=== PATIENT | female | born 1970 | race Two or more races ===

== ENCOUNTER 2020-03-09 12:12 | Emergency (ER) | payer OTHER ==
--- NOTE | 2020-03-09 13:13 | EDM.PDOC ---
<Adrienne Fuller M - Last Filed: 03/09/20 16:11> ED HPI GENERAL MEDICAL PROBLEM - General Chief Complaint: Respiratory Problem Stated Complaint: COVID + FEELING WEAK AND SOB Time Seen by Provider: 03/09/20 13:00 Source of Information: Reports: Patient History Limitations: Reports: No Limitations - History of Present Illness INITIAL COMMENTS - FREE TEXT/NARRATIVE: 49-year-old female presents to the emergency department with complaints of shortness of breath, cough, nausea, diarrhea and general malaise. She tested positive for Covid on 02 March. States she is just feeling increased shortness of breath and generally unwell. States she has a persistent cough which became more productive of sputum this morning. Also complains of pain in the middle of her back when laying flat in bed and coughing. Appetite has also been poor. Denies significant medical history other than hypertension for which she takes medications. Primary care physician is Dr. Boggs. On presentation to the ER the patient's O2 saturations are 96% on room air, however she is tachypneic. Onset: Gradual Chest Pain Score (Numeric/FACES): 6 - Related Data Allergies Allergy/AdvReac Type Severity Reaction Status Date / Time No Known Allergies Allergy Verified 03/09/20 12:47 Home Meds: Home Meds Control 1 tab PO DAILY 03/09/20 [History] Omeprazole Magnesium [Prilosec] 20 mg PO DAILY 03/09/20 [History] dexAMETHasone [Decadron] 6 mg PO ASDIRECTED #15 tablet 03/09/20 [Rx] Past Medical History Cardiovascular History: Reports: Hypertension Gastrointestinal History: Reports: GERD - Past Surgical History HEENT Surgical History: Reports: Adenoidectomy, Tonsillectomy GI Surgical History: Reports: Hernia, Inguinal Female Surgical History: Reports: D&C, Tubal Ligation Social & Family History - Tobacco Use Tobacco Use Status *Q: Never Tobacco User - Caffeine Use Caffeine Use: Reports: Coffee, Soda - Recreational Drug Use Recreational Drug Use: No ED EXAM, GENERAL - Physical Exam Exam: See Below Exam Limited By: No Limitations General Appearance: Alert, WD/WN, Mild Distress Eye Exam: Bilateral Eye: PERRL Ears: Normal External Exam, Hearing Grossly Normal Nose: Normal Inspection Throat/Mouth: Normal Lips, Normal Voice, No Airway Compromise Head: Atraumatic, Normocephalic Neck: Normal Inspection, Supple, Non-Tender, Full Range of Motion Respiratory/Chest: Decreased Breath Sounds Cardiovascular: Normal Peripheral Pulses, Regular Rate, Rhythm, No Edema, No Murmur Peripheral Pulses: 2+: Radial (L), Radial (R), Dorsalis Pedis (L), Dorsalis Pedis (R) GI/Abdominal: Normal Bowel Sounds, Soft, Non-Tender (Female) Exam: Deferred Rectal (Female) Exam: Deferred Back Exam: Normal Inspection, Full Range of Motion Extremities: Normal Inspection, Normal Range of Motion, Non-Tender, No Pedal Edema, Normal Capillary Refill Neurological: Alert, Oriented, Normal Cognition Psychiatric: Normal Affect, Normal Mood Skin Exam: Warm, Dry, Intact, Normal Color, No Rash Lymphatic: No Adenopathy #1 Interpretation EKG Date: 03/09/20 Time: 13:08 Rhythm: NSR Rate (Beats/Min): 86 [place]: Normal P-Wave: Present Comparison: NA - No Prior EKG EKG Interpretation Comments: As per Dr. Barboza interpretation: Sinus rhythm at 86, T wave flattening V1 through V6, 3 and aVF: Metabolic abnormality, QTC moderately prolonged Course - Re-Assessments/Exams Free Text/Narrative Re-Assessment/Exam: 03/09/20 14:10 Labs reveal WBC 5.07, platelet count 161, D-dimer 0.38, potassium 4.9, troponin less than 0.017, C-reactive protein 2.4, potassium 3.9, magnesium 1.8 I spoke with the patient to provide information about family and bamlanivimab treatment for her. I offered her the patient and caregiver MELISSA Bamlanivimad fax sheet to read and review. I stated the drug has been approved by an emergency use authorization process and has not been fully FDA reviewed or approved. The patient meets the EUA requirements having a history of hypertension treated with losartan, and a BMI of 44.9. I discussed there are other potential treatment options that are currently not FDA approved to treat COVID-19. Offered the opportunity to ask questions and all questions were answered. The patient voiced understanding and agreed to proceed with the treatment for herself 03/09/20 14:14 Nothing acute seen on portable chest x-ray 03/09/20 16:11 I have turned over care to WINTER Archibald. Departure - Departure Disposition: Home, Self-Care 01 Clinical Impression: COVID-19 - Discharge Information Prescriptions: dexAMETHasone [Decadron] 6 mg PO ASDIRECTED #15 tablet Instructions: COVID-19 Frequently Asked Questions, Prevent the Spread of COVID- 19 if You Are Sick - [facility] Referrals: Kavin Boggs MD [Primary Care Provider] - Forms: ED Department Discharge Additional Instructions: You were seen in the ER today for ongoing and/or worsening respiratory symptoms. Your chest x-ray showed no signs of pneumonia at this time. Your oxygen levels were okay at 94-95% on room air. You were given a monoclonal antibody for your COVID-19 disease. This is to help reduce some of the severity of your symptoms, and hopefully give you a shorter disease course. Please try to increase your oral fluid intake, and eat multiple small meals throughout the day, to keep yourself healthy. You need to keep yourself nourished in order to fight off this disease. You can try a liquid diet like gatorade/powerade as well to get your electrolytes. You may take 500 mg Tylenol every hours 6 hours for pain/fever relief. Do not exceed 4000 mg Tylenol in a 24-hour time span. However, running a fever is your body's natural response to illness, and it allows the body to develop antibodies to disease, we are recommending trying to limit the use of Tylenol as much as possible to allow your body's natural immune response. You were given a prescription for dexamethasone, dosing will be 1 tablet 2 times a day for the next 5 days, then 1 tablet once a day x5 days. Recommend you obtain a pulse oximeter and monitor your oxygen levels at home, you should place the monitor on your finger, and sit in a calm, quiet position for a few minutes and then record the number that is on the screen. If this consistently below 90% on room air without movement, this would be cause for concern to come back to the hospital for further management of your COVID-19 disease. Sepsis Event Note (ED) - Evaluation Sepsis Screening Result: No Definite Risk <Magalie Barker V - Last Filed: 03/09/20 19:33> ED ROS GENERAL - Review of Systems Review Of Systems: Comprehensive ROS is negative, except as noted in HPI. Course - Vital Signs Last Recorded V/S: Last Vital Signs Temp 97.4 F 03/09/20 17:30 Pulse 92 03/09/20 17:30 Resp 22 H 03/09/20 17:30 BP 134/106 H 03/09/20 17:30 Pulse Ox 97 03/09/20 17:30 - Orders/Labs/Meds Orders: Active Orders 24 hr Category Date Time Status Isolation [COMM] Routine Oth 03/09/20 13:05 Ordered Labs: Laboratory Tests 03/09/20 03/09/20 03/09/20 Range/Units 13:20 13: 13:20 WBC 5.07 (3.98-10.04) K/mm3 RBC 4.94 (3.98-5.22) M/mm3 Hgb 14.4 (11.2-15.7) gm/dl Hct 43.4 (34.1-44.9) % MCV 87.9 (79.4-94.8) fl MCH 29.1 (25.6-32.2) pg MCHC 33.2 (32.2-35.5) g/dl RDW Std Deviation 41.5 (36.4-46.3) fL Plt Count 161 L (182-369) K/mm3 MPV 9.2 L (9.4-12.3) fl Neutrophils % (Manual) 70 H (40-60) % Band Neutrophils % 0 (0-10) % Lymphocytes % (Manual) 27 (20-40) % Atypical Lymphs % 0 % Monocytes % (Manual) 3 (2-10) % Eosinophils % (Manual) 0 L (0.7-5.8) % Basophils % (Manual) 0 L (0.1-1.2) Platelet Estimate Adequate RBC Morph Comment Normal D-Dimer, Quantitative 0.38 (0.19-0.50) mg/L Sodium (136-145) mEq/L Potassium (3.5-5.1) mEq/L Chloride (98-107) mEq/L Carbon Dioxide (21-32) mEq/L Anion Gap (5-15) BUN (7-18) mg/dL Creatinine (0.55-1.02) mg/dL Est Cr Clr Drug Dosing mL/min Estimated GFR (MDRD) (>60) mL/min BUN/Creatinine Ratio (14-18) Glucose (74-106) mg/dL Calcium (8.5-10.1) mg/dL Magnesium (1.8-2.4) mg/dl Total Bilirubin (0.2-1.0) mg/dL AST (15-37) U/L ALT (14-59) U/L Alkaline Phosphatase (46-116) U/L Troponin I (0.00-0.056) ng/mL C-Reactive Protein 2.4 H* (<1.0) mg/dL Total Protein (6.4-8.2) g/dl Albumin (3.4-5.0) g/dl Globulin gm/dL Albumin/Globulin Ratio (1-2) //20 Range/Units 13:20 WBC (3.98-10.04) K/mm3 RBC (3.98-5.22) M/mm3 Hgb (11.2-15.7) gm/dl Hct (34.1-44.9) % MCV (79.4-94.8) fl MCH (25.6-32.2) pg MCHC (32.2-35.5) g/dl RDW Std Deviation (36.4-46.3) fL Plt Count (182-369) K/mm3 MPV (9.4-12.3) fl Neutrophils % (Manual) (40-60) % Band Neutrophils % (0-10) % Lymphocytes % (Manual) (20-40) % Atypical Lymphs % % Monocytes % (Manual) (2-10) % Eosinophils % (Manual) (0.7-5.8) % Basophils % (Manual) (0.1-1.2) Platelet Estimate RBC Morph Comment D-Dimer, Quantitative (0.19-0.50) mg/L Sodium 138 (136-145) mEq/L Potassium 3.9 (3.5-5.1) mEq/L Chloride 103 (98-107) mEq/L Carbon Dioxide 24 (21-32) mEq/L Anion Gap 14.9 (5-15) BUN 9 (7-18) mg/dL Creatinine 0.7 (0.55-1.02) mg/dL Est Cr Clr Drug Dosing 87.48 mL/min Estimated GFR (MDRD) > 60 (>60) mL/min BUN/Creatinine Ratio 12.9 L (14-18) Glucose 117 H (74-106) mg/dL Calcium 9.1 (8.5-10.1) mg/dL Magnesium 1.8 (1.8-2.4) mg/dl Total Bilirubin 0.3 (0.2-1.0) mg/dL AST 20 (15-37) U/L ALT 25 (14-59) U/L Alkaline Phosphatase 63 (46-116) U/L Troponin I < 0.017 (0.00-0.056) ng/mL C-Reactive Protein (<1.0) mg/dL Total Protein 7.5 (6.4-8.2) g/dl Albumin 3.8 (3.4-5.0) g/dl Globulin 3.7 gm/dL Albumin/Globulin Ratio 1.0 (1-2) Meds: Medications Discontinued Medications Generic Name Dose Route Start Last Admin Trade Name Freq PRN Reason Stop Dose Admin Dexamethasone 6 mg 03/09/20 14:15 03/09/20 14:21 Dexamethasone IV 03/09/20 14:16 6 mg ONETIME ONE Administration Diphenhydramine HCl 50 mg 03/09/20 14:10 Benadryl IVPUSH ONETIME PRN hypersensitivity reaction Epinephrine HCl 0.3 mg 03/09/20 14:10 Epinephrine 1:10,000 IM ONETIME PRN hypersensitivity reaction Famotidine 20 mg 03/09/20 14:10 Pepcid IVPUSH ONETIME PRN hypersensitivity reaction Bamlanivimab 700 mg/ Sodium 270 mls @ 270 mls/hr 03/09/20 14:10 03/09/20 14:59 Chloride IV 03/09/20 14:11 270 mls/hr ONETIME ONE Administration Protocol Methylprednisolone Sodium Succinate 125 mg 03/09/20 14:10 Solu-Medrol IVPUSH ONETIME PRN hypersensitivity reaction Sodium Chloride 30 ml 03/09/20 14:15 03/09/20 16:20 Saline Flush FLUSH 30 ml ASDIRECTED OPAL Administration - Re-Assessments/Exams Free Text/Narrative Re-Assessment/Exam: 03/09/20 16:04 The patient's care was assumed from Adrienne Fuller NP. She has given me report, patient is receiving bamlanivimab treatment at this time. She will be discharged home with a course of dexamethasone. 03/09/20 17:06 Patient was given the bamlanivimab, observed for an hour and has done well. To be discharged home with a course of dexamethasone and general recommendations. Departure - Departure Time of Disposition: 17:06 Condition: Good - Discharge Information *PRESCRIPTION DRUG MONITORING PROGRAM REVIEWED*: No *COPY OF PRESCRIPTION DRUG MONITORING REPORT IN PATIENT MORIS: No Sepsis Event Note (ED) - Focused Exam Vital Signs: Vital Signs Temp Pulse Resp BP Pulse Ox 03/09/20 17:30 97.4 F 92 22 H 134/106 H 97 03/09/20 12:54 97.0 F 90 20 150/104 H 96
--- NOTE | 2020-03-09 13:34 | CR ---
Chest: Portable view of the chest was obtained. Comparison: No prior chest imaging available. Heart size and mediastinum are normal. Lungs are clear with no acute parenchymal change. Bony structures are grossly intact. Impression: 1. Nothing acute is seen on portable chest x-ray. Diagnostic code #1
[2020-03-09] MEDS ORDERED: diphenhydrAMINE 50 MG/ML SDV IVPUSH PRN (14:10)
[2020-03-09] MEDS ORDERED: EPINEPHrine 1:10,000 1 MG/10 ML Syringe IM PRN (14:10)
[2020-03-09] MEDS ORDERED: Famotidine 20 MG/2 ML SDV IVPUSH PRN (14:10)
[2020-03-09] MEDS ORDERED: methylPREDNISolone Sodium Succinate 125 MG/2 ML SDV IVPUSH PRN (14:10)
[2020-03-09] MEDS ORDERED: Sodium Chloride 0.9% 10 ML Syringe FLUSH SCH (14:15)
[2020-03-09] MEDS ORDERED: Dexamethasone 4 MG/ML 5 ML MDV IV ONE (14:15)
== END 2020-03-09 17:40 | disposition home or self-care (01) ==
LOC: JD.ED 12:12
DX: U07.1 COVID-19 (principal); I10 Essential (primary) hypertension; K21.9 Gastro-esophageal reflux disease without esophagitis; Z79.899 Other long term (current) drug therapy
CPT/HCPCS: 36415; 71045; 80053; 83735; 84484; 85007; 85027; 85379; 86140; 93005; 96365; 96375; 99285; J1100; J7050; 93010; 99284

== ENCOUNTER 2022-12-01 16:20 | Emergency (ER) | payer OTHER ==
[2022-12-01 18:12] LABS: BASOPHILS PERCENT AUTO 0.4 % (0.0-1.0); EOSINOPHILS ABSOLUTE AUTO 0.1 K/mm3 (0.0-0.4); EOSINOPHILS PERCENT AUTO 1.7 % (0.0-6.0); HEMATOCRIT 41.6 % (37.0-47.0); HEMOGLOBIN 14.1 gm/dl (12.0-16.0); IMMATURE GRAN ABSOLUTE AUTO 0.02 K/mm3 (0.00-0.05); IMMATURE GRAN PERCENT AUTO 0.3 % (0.0-0.4); LYMPHOCYTES ABSOLUTE AUTO 2.3 K/mm3 (1.0-4.8); MEAN CORPUSCULAR HEMOGLOBIN 29.6 pg (28.0-32.0); MEAN CORPUSCULAR HGB CONC 33.9 g/dl (32.0-36.0); MEAN CORPUSCULAR VOLUME 87.4 fl (83.0-99.0); MEAN PLATELET VOLUME 8.7 fl (9.4-12.3); MONOCYTES ABSOLUTE AUTO 0.5 K/mm3 (0.0-0.8); NEUTROPHILS ABSOLUTE AUTO 4.6 K/mm3 (1.8-7.7); NEUTROPHILS PERCENT AUTO 60.6 % (41.0-71.0); PLATELET COUNT,PLT 230 K/mm3 (150-400); RED BLOOD CELL COUNT 4.76 M/mm3 (4.10-5.30)
[2022-12-01 18:29] LABS: INR 0.93
[2022-12-01 18:30] LABS: PTT,PARTIAL THROMBOPLSTIN TIME 24.9 SECONDS (21.7-31.4)
[2022-12-01 18:49] LABS: A/G RATIO 1.2 (1-2); ALBUMIN 3.8 g/dl (3.4-5.0); ANION GAP 13.8 (5-15); BILIRUBIN TOTAL 0.3 mg/dL (0.2-1.0); BUN/CREATININE RATIO 22.9 (14-18); CALCIUM 9.1 mg/dL (8.5-10.1); CREATININE 0.7 mg/dL (0.55-1.02); EST CRCL DRUG DOSING (CG) 81.18 mL/min; MAGNESIUM 2.1 mg/dL (1.8-2.4); POTASSIUM,K 3.8 mEq/L (3.5-5.1); PROTEIN TOTAL,TP 7.1 g/dl (6.4-8.2)
== END 2022-12-01 20:00 | disposition home or self-care (01) ==
LOC: JD.ED 16:20
DX: R07.9 Chest pain, unspecified (principal); I10 Essential (primary) hypertension; E66.9 Obesity, unspecified; K21.9 Gastro-esophageal reflux disease without esophagitis; Z86.16 Personal history of COVID-19; Z79.899 Other long term (current) drug therapy
CPT/HCPCS: 36415; 80053; 83735; 83880; 84484; 85025; 85610; 85730; 93005; 93246; 99285